=== PATIENT | female | born 1980 | race Caucasian/White ===

== ENCOUNTER → 2017-03-02 | Outpatient (CLI) | payer BC ==
--- NOTE | 2017-03-02 21:45 | DI ---
MRI LEFT KNEE SCAN, 03/02/2017 12:51 PM: Clinical History: Left knee pain. Previous Exam: None at this facility. Technique: Axial, coronal, and sagittal PD and fat saturated PD; axial T1 weighted. There is edema in the subcutaneous fat superficial to the medial collateral ligament, the medial reti naculum, and the medial patellofemoral ligament. A small to moderate joint effusion is present with s ynovitis in the suprapatellar bursa. No abnormal bone signal pattern is present. There are partial te ars of the medial collateral ligament, the meniscotibial and meniscofemoral ligaments, the medial ret inaculum, and the medial patellofemoral ligament. Intermediate signal intensity is present in the lat eral collateral ligament at the attachment to the lateral femoral condyle and this is consistent with a chronic partial tear. The medial and lateral menisci, the quadriceps and popliteus tendons, and th e tendon of the lateral head of the gastrocnemius muscle are normal. There is a partial tear or sprai n of the tendon of the medial head of the gastrocnemius muscle and there is tendinosis of the proxima l and distal portions of the patellar tendon. 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 The articular surf aces of the medial and lateral compartments are intact. Readin. There are partial tears of the MCL, the meniscotibial and the meniscotibial ligaments, the medial retinaculum, the medial patellofemoral ligament, and the tendon of the medial head of the gastrocnem ius muscle. Mild lateral subluxation of the patella is present and there is a grade 2 and possibly 3 chondromalacia involving the medial facet of the patella. A chronic tear or scarring is present in th e LCL at the attachment to the lateral femoral condyle. There is patellar tendinosis. A small to mode rate joint effusion is present with synovitis. 2. The ACL, PCL, medial and lateral menisci, the quadriceps and popliteus tendons, and the tendon of the lateral head of the gastrocnemius muscle are normal. The articular surfaces of the medial and la teral compartments are intact.
== END ==
LOC: MRI 12:45
PROVIDERS: ATTEND Orthopaedic Surgery
DX: M25.562 Pain in left knee (principal); S83.412A Sprain of medial collateral ligament of left knee, initial encounter; M22.42 Chondromalacia patellae, left knee; M25.462 Effusion, left knee
CPT/HCPCS: 73721